=== PATIENT | male | born 2000 | race Two or more races ===

== ENCOUNTER 2024-12-06 19:42 | Emergency (ER) | payer MEDICAID, SELFPAY ==
--- NOTE | 2024-12-06 20:16 | PD.EDRME ---
Rapid Medical Screening Exam RME Arrival date/time: 12/06/24 19:42 Chief Complaint: Weakness Time Seen by Provider: 12/06/24 19:44 Vital signs: Vital Signs Temperature 99.6 F 12/06/24 20:23 Pulse Rate 126 H 12/06/24 20:23 Respiratory Rate 17 12/06/24 20:23 Blood Pressure 113/74 12/06/24 20:23 Pulse Oximetry (%) 96 12/06/24 20:23 Oxygen Delivery Method Room Air 12/06/24 20:23 RME Narrative: Decreased appetite, fatigue, nausea x3 days. Hx DM1
[2024-12-06 20:23] VITALS: BP 113/74; PULSE 126; RESP 17; TEMP 37.6; O2SAT 96
[2024-12-06 20:45] LABS: Basophils # (Auto) 0.1 Thou/mm3 (0.0-0.2); Basophils % (Auto) 0 % (0-2.5); Eosinophils # (Auto) 0.1 Thou/mm3 (0.0-0.5); Eosinophils % (Auto) 0 % (0-10); Hematocrit 38.3 % (41.0-53.0); Hemoglobin 13.8 g/dL (13.5-16.0); Immature Granulocytes % (Auto) 0 % (0-0); Immature Granulocytes Auto 0.06 Thou/mm3 (0.00-0.00); Lymphocytes # (Auto) 1.8 Thou/mm3 (1.0-4.8); Lymphocytes % (Auto) 13 % (10-50); Mean Corpuscular Hemoglobin 28.6 pg (25.0-35.0); Mean Corpuscular Volume 79 fL (80-100); Monocytes # (Auto) 0.9 Thou/mm3 (0.0-0.8); Monocytes % (Auto) 7 % (0-12); Neutrophils # (Auto) 11.2 Thou/mm3 (1.8-7.7); Neutrophils % (Auto) 80 % (37-80); Nucleated Red Blood Cell % 0 /100 WBC (0); Platelet Count 326 Thou/mm3 (140-440); RDW Standard Deviation 33.6 fL (35.1-43.9); Red Blood Count 4.83 Miln/mm3 (4.50-5.90)
[2024-12-06 20:49] LABS: Beta Hydroxybutyrate 4.5 mmol/L (<0.6)
[2024-12-06 21:03] LABS: Alanine Aminotransferase < 7 U/L (10-49); Albumin, Serum 4.5 gm/dL (3.5-5.0); Albumin/Globulin Ratio 1.4 (1.2-2.2); Alkaline Phosphatase 123 U/L (46-116); Anion Gap 15 (7-16); Aspartate Amino Transferase 11 U/L (0-34); BUN/Creatinine Ratio 11 Ratio (12-20); Bilirubin,Total 1.1 mg/dL (0.3-1.2); Blood Urea Nitrogen 8 mg/dL (9-23); Calcium 9.8 mg/dL (8.3-10.6); Calcium (Corrected) 9.8 mg/dL (8.5-10.1); Carbon Dioxide 22.3 mMol/L (20.0-31.0); Chloride 93 mMol/L (98-107); Creatinine (Component) 0.7 mg/dL (0.6-1.3); Estimated Creatinine Clearance 125.3 mL/min (>60); Globulin 3.3 gm/dL (2.3-3.5); Glucose 319 mg/dL (74-106); Osmolality,Calculated 271 (275-295); Potassium 3.8 mMol/L (3.4-5.1); Sodium 130 mMol/L (136-145); Total Protein 7.8 gm/dL (5.7-8.2); eGFR > 60 See Note
[2024-12-06 21:08] LABS: Glucose Estimated Average 237 mg/dL (80-131); Hemoglobin A1C 9.9 % Hgb (4.8-6.0)
[2024-12-06 21:15] LABS: Base Excess, Venous 1 (-3-3); O2 Saturation, Venous 54 % (96-97); PCO2, Venous 42 mmHg (36-56); PO2, Venous 28 mmHg (15-58)
[2024-12-06 21:34] LABS: Collection Type, Urine Clean Catch
[2024-12-06] MEDS: SODIUM CHLORIDE 0.9% 1000 ML 1,000 ML 999 ML IV (21:35)
[2024-12-06] MEDS: ONDANSETRON ODT 4 MG TABRAP PO (21:36)
[2024-12-06 21:38] VITALS: BP 130/80; PULSE 117; RESP 18; TEMP 37.4; O2SAT 97
[2024-12-06 21:44] LABS: Amorphous Crystals,Urine Present (Absent); Bilirubin,Urine Negative (Negative); Blood,Urine 2+ (Negative); Clarity,Urine Clear (Clear/Hazy); Color,Urine Yellow (Lt Yel-Yel); Glucose, Urine 4+ (Negative); Hyaline Casts,Urine < 1 /hpf (0-1); Ketones,Urine 4+ (Negative); Leukocyte Esterase,Urine Negative (Negative); Nitrite,Urine Negative (Negative); Protein,Urine 1+ (Neg - Trace); RBC,Urine 37 /hpf (0-3); Specific Gravity,Urine 1.022 (1.001-1.035); Squamous Epithelial Cell,Urine 2 /hpf (0-5); Urobilinogen,Urine Negative mg/dL (0.0-1.0); WBC,Urine 10 /hpf (0-5)
--- NOTE | 2024-12-06 21:58 | EDNOTE_ITS ---
ED Weakness RME/HPI General Chief complaint: Weakness Stated complaint: UNABLE TO EAT, TIRED, BG 321 TYPE 1 DM Time Seen by Provider: 12/06/24 19:44 Arrival date/time: 12/06/24 19:42 RME / HPI RME / HPI Narrative: Decreased appetite, fatigue, nausea x3 days. Hx DM1 ------ Dr. Shirley?s Main ED Evaluation: 24yo male with a history of DMI presents to the ED for a chief complaint of generalized weakness for the last few days. Patient states he has been unable to keep anything down for the last few days, reporting associated fatigue, N/V, and chills. Patient denies any fever, cough, chest pain, abdominal pain, back pain or any other associated symptoms. Denies any tobacco, alcohol or illicit drug use. NKA. Related Data Previous Rx's ?Medication ?Instructions ?Recorded blood sugar diagnostic (Contour #50 ea 01/23/23 Next Test Strips) loperamide 2 mg capsule 2 mg PO QID PRN loose stool #60 08/29/23 caps blood-glucose meter (Contour Next #1 ea 09/03/23 EZ Meter) flash glucose sensor (FreeStyle #1 ea 09/03/23 Monroe 2 Sensor kit) nystatin 100,000 unit/gram topical 1 applic topical QD AY #1 g 09/30/23 cream glucagon 3 mg/actuation nasal 3 mg intranasal PRN PRN 12/27/23 spray (Baqsimi) hypoglycemia #2 ea glucagon 3 mg/actuation nasal 3 mg intranasal Q15M PRN 12/27/23 spray (Baqsimi) hypoglycemia #2 ea insulin glargine 100 unit/mL (3 30 unit (0.3 mL) subcu t QPM 30 12/27/23 mL) subcutaneous pen (Lantus days #15 mL Solostar U-100 Insulin) insulin lispro 100 unit/mL 4 unit (0.04 mL) subcut ACH S #15 mL 12/27/23 subcutaneous pen (Humalog KwikPen (U-100) Insulin) pen needle, diabetic 31 gauge x #100 ea 12/27/23 1/ urine glucose-ketones test #50 ea 12/27/23 (Keto-Diastix strips) blood-glucose sensor (FreeStyle #2 ea 02/05/24 Monroe 3 Sensor device) cephalexin 500 mg capsule 500 mg PO Q12H #14 caps 11/09 03/04 Allergies Allergy/AdvReac Type Severity Reaction Status Date / Time No Known Allergies Allergy Verified 12/06/24 19:43 Review of Systems Review of Systems Systems Reviewed: All systems reviewed, normal except as documented ED Exam Narrative Physical exam: GEN. APPEARANCE: The patient is alert awake oriented X-3 in no distress, lying down comfortably, does not look ill/toxic. Patient has good eye contact. Patient is cooperative. VITALS: All vitals were reviewed and the pulse ox is 97% on room air which is normal according to my interpretation. HEENT: Normocephalic, atraumatic. Pupils are equal and reactive. Oral mucosa is moist. Patent Nares NECK: Supple, nontender, no thyromegaly, no meningismus, no JVD CHEST: Symmetrical, atraumatic, and with equal expansion , Nontender on palpation no deformity and no crepitus. CARDIOVASCULAR: Tachycardic no murmur or gallop rub or extra beats. LUNGS: Clear to auscultation bilaterally with symmetrical chest rise. No laboring tachypnea or wheezing. No intercostal subcostal retraction. No rales and no rhonchi. ABDOMEN: Soft, flat, nontender to palpation, no guarding or rebound tenderness. There are no abnormal masses palpated. Active and normal bowel sounds. EXTREMITIES: Nontender. No edema. No cyanosis. Patient is able to move all 4 extremities well, with full ROM and good CSM. SKIN: Warm and dry, no jaundice or rashes noted. NEURO: Patient is ZIEGLER x 4, Cranial nerves II through XII grossly intact. There is no focal neurologic deficits noted. GCS is 15, PNS and PACKAGING INSPECTOR appear grossly intact. PSYCHIATRIC: Patient is in normal mood and affect. Course Quality Measures none Orders Category Date Time Status IV [Insert IV] STAT Care 12/06/24 21:34 Active Beta Hydroxybutyrate Stat Lab 12/06/24 20:30 Completed CBC Stat Lab 12/06/24 20:30 Completed CMP [Comprehensive Metabolic Panel] Stat Lab 12/06/24 20:30 Completed Hemoglobin A1C [Glycohemoglobin w (eAG)] Stat Lab 12/06/24 20:30 Completed UA [Urinalysis] Stat Lab 12/06/24 21:23 Completed VBG [Venous Blood Gas] Stat Lab 12/06/24 20:59 Completed Acetaminophen Tab [Tylenol Tab] Med 12/06/24 22:25 Discontinued 650 mg PO X1 ONE Ondansetron Odt [Zofran Odt] Med 12/06/24 20:48 Discontinued 4 mg PO X1 ONE Ringers Lactated 1000 ml [Lactated Ringers] 1,000 ml Med 12/06/24 21:58 Discontinued IV 999 mls/hr Sodium Chloride 0.9% 1000 ml [Ns] 1,000 ml Med 12/06/24 20:48 Discontinued IV 999 mls/hr cefTRIAXone/D5w 1gm IV premix [Rocephin/D5w 1gm IV Med 12/06/24 21:59 Discontinued premix] 1 gm in 50 ml IV NOW Reevaluation(s) Reevaluation #1: Patient's HR is now down to 107 after receiving 2L IVF. Patient states he feels significantly better. Patient is stable to be discharged home. Time: 00:53 Vital Signs Vital signs: Vital Signs Temperature 99.6 F 12/06/24 20:23 Pulse Rate 126 H 12/06/24 20:23 Respiratory Rate 17 12/06/24 20:23 Blood Pressure 113/74 12/06/24 20:23 Pulse Oximetry (%) 96 12/06/24 20:23 Oxygen Delivery Method Room Air 12/06/24 20:23 Weakness MDM Narrative MDM Narrative:: Scribe Attestation: 12/06/24 - Brooke Alves am scribing for and in the presence of Dr. Shirley. Patient is a 24-year-old male with emergency primary concerns for nausea, weakness and generally feeling unwell. Vital signs and exam as stated. Concern for DKA, HHS, urinary tract infection, metabolic disturbance among others. Ordered labs fluids. Labs with evidence of mild leukocytosis, patient also with hyperglycemia no evidence of DKA at this time. Patient does have an elevated beta hydroxybutyrate. Urinalysis with evidence of hematuria, pyuria. Concern for urinary tract infection. Patient does not have any flank pain or belly pain. Provided patient with antibiotics, additional liter of fluids. 11:56p on reevaluation, patient hemodynamically stable not in distress symptoms significantly proved will discharge home with close return precautions follow-up with primary care doctor. Patient is tolerating oral intake Patient data External records reviewed:: [facility] previous records (Per chart review, patient was admitted here on 09/02/23 for DKA.) Clinical information provided by:: patient Social determinants that could affect healthcare access:: none Patient has the following chronic illnesses:: DMI How is presenting disease/condition affected by chronic disease/condition?: caused by Evaluation data The following diagnostics were reviewed and interpreted by me:: lab results Lab and/or radiology exams considered but not ordered:: none Interpretation Summary: WBC 14.0, VBG normal, Sodium 130, Glucose 319, Anion Gap normal, Beta Hydroxybutyrate 4.5, UA positive for UTI. Medications / Prescriptions Medications or Prescriptions considered but not ordered:: none Medication administrations:: Medication Administration History Discontinued Medications Acetaminophen (Acetaminophen 325 Mg Tablet) 650 mg PO X1 ONE Stop: 12/06/24 22:26 Last Admin: 12/06/24 22:43 Dose: 650 mg Documented By: SANCHO Sodium Chloride (Ns) 1,000 mls @ 999 mls/hr IV .Q1H1M ONE Stop: 12/06/24 21:48 Last Infusion: 12/06/24 22:37 Dose: Infused Documented By: Admin: 12/06/24 21:35 Dose: 999 mls/hr Documented By: SANCHO Lactated Ringer's (Lactated Ringers) 1,000 mls @ 999 mls/hr IV .Q1H1M ONE Stop: 12/06/24 22:58 Last Infusion: 12/06/24 23:21 Dose: Infused Documented By: Admin: 12/06/24 22:19 Dose: 999 mls/hr Documented By: ELIZABETH Ceftriaxone Sodium/Dextrose (Rocephin/D5w 1gm Iv Premix) 1 gm in 50 mls @ 100 mls/hr IV NOW ONE Stop: 12/06/24 22:28 Last Infusion: 12/06/24 23:19 Dose: Infused Documented By: Admin: 12/06/24 22:18 Dose: 100 mls/hr Documented By: ELIZABETH Ondansetron HCl (Ondansetron Odt 4 Mg Tabrap) 4 mg PO X1 ONE; Protocol Stop: 12/06/24 20:49 Last Admin: 12/06/24 21:36 Dose: 4 mg Documented By: SANCHO see above Consultations Consultation(s) initiated? (list below): No Diagnosis Weakness Differential Diagnosis: dehydration and other (hyperglycemia without ketosis, DKA, hyperosmolar state, other metabolic disturbance) Most likely diagnosis given after review of the tests above:: generalized weakness, hematuria, hyperglycemia, hyponatremia Admission Indicated Admission indicated?: not indicated Admission Request Was there a request for admission?: No Disposition Plan Disposition Plan: Discharge Discharge Attestation Discharge Attestation: The patient and all family members were given an opportunity to ask questions and understood the discharge instructions. Discharge instructions specifically effects, indications for sooner follow up or return to the emergency department, and the expected course of current diagnosis. Patient condition: Stable Critical Care Time Critical Care Time Critical Care Time: Yes Total Critical Care Time (min.): 35 Attestation: The high probability of sudden, clinically significant deterioration in the patient?s condition required the highest level of my preparedness to intervene urgently. The services I provided to this patient were to treat and/or prevent clinically significant deterioration. Services included the following: chart data review, reviewing nursing notes and/or old charts, documentation time, quality improvement consultant collaboration regarding findings and treatment options, medication orders and management, direct patient care, vital sign assessments and ordering, interpreting and reviewing diagnostic studies and lab tests. Aggregate critical care time includes only time during which I was engaged in work directly related to the patient?s care, as described above, whether at bedside or elsewhere in the Emergency Department. It did not include time spent performing other reported procedures or the services of residents, students, nurses or physician assistants. Discharge Plan Plan Patient Disposition: HOME (Self Care) Prescriptions/Referrals Prescriptions/Med Rec: New cephalexin 500 mg capsule 500 mg PO Q12H Qty: 14 0RF No Action (DME) Contour Next Test Strips Strip See Rx Instructions .Route Qty: 50 3RF Rx Instructions: As directed nystatin 100,000 unit/gram cream 1 applic topical QDAY Qty: 1 0RF loperamide 2 mg capsule 2 mg PO QID MDD 8 mg PRN (Reason: loose stool) Qty: 60 2RF (DME) Keto-Diastix Strip See Rx Instructions .Route Qty: 50 0RF Rx Instructions: As directed (DME) pen needle, diabetic 31 gauge x 1/3 needle See Rx Instructions .Route Qty: 100 3RF Rx Instructions: As directed insulin lispro [Humalog KwikPen Insulin] 100 unit/mL insulin pen 4 unit subcut ACHS Qty: 15 5RF Rx Instructions: Fingerstick glucose <180: none 181-240:1U 241-300:2U 301-350:3U 351-400:4U insulin glargine [Lantus Solostar U-100 Insulin] 100 unit/mL (3 mL) insulin pen 30 unit subcut QPM MDD 30 units 30 Days Qty: 15 5RF Baqsimi 3 mg/actuation spray,non-aerosol 3 mg intranasal PRN PRN (Reason: hypoglycemia) Qty: 2 3RF Baqsimi 3 mg/actuation spray,non-aerosol 3 mg intranasal Q15M PRN (Reason: hypoglycemia) Qty: 2 0RF (DME) FreeStyle Monroe 3 Sensor Device See Rx Instructions .Route Qty: 2 6RF Rx Instructions: Use with Freestyle Monroe 3 CGM system, replace every 2 weeks (DME) FreeStyle Monroe 2 Sensor Kit See Rx Instructions .Route Qty: 1 0RF Rx Instructions: As directed (DME) blood-glucose meter [Contour Next EZ Meter] Misc See Rx Instructions .Route Qty: 1 0RF Rx Instructions: As directed Referrals: Tarik Patel MD [Primary Care Provider] - In 1 week Problem List Clinical Impression: Urinary tract infection, Acute hyperglycemia, Hematuria Patient/Caregiver Discharge Instructions Print Language: Ivorian Stand Alone Forms: Alea Award Info., Patient Portal Info Letter
[2024-12-06] MEDS: cefTRIAXone/D5w 1gm IV premix 1 GM/50 ML BAG IV (22:18)
[2024-12-06] MEDS: RINGERS LACTATED 1000 ML 1,000 ML 999 ML IV (22:19)
[2024-12-06 22:43] VITALS: TEMP 37.4
[2024-12-06] MEDS: ACETAMINOPHEN 325 MG TABLET 650 MG PO (22:43)
[2024-12-06 22:45] VITALS: BP 115/72; PULSE 112; RESP 14; TEMP 37.4; O2SAT 95
[2024-12-06 23:49] VITALS: TEMP 37.6
[2024-12-06 23:50] VITALS: BP 112/69; PULSE 109; RESP 16; TEMP 37.6; O2SAT 96
== END 2024-12-07 00:06 | disposition home or self-care (01) ==
PROVIDERS: Physician Assistant; Emergency Provider Emergency Medicine; PCP Family Medicine
DX: N39.0 Urinary tract infection, site not specified (principal); E10.65 Type 1 diabetes mellitus with hyperglycemia
CPT/HCPCS: 36415; 80053; 81001; 82010; 82803; 83036; 85025; 96361; 96365; 99284; J0696; J7030; J7120; Q0162; A9270